=== PATIENT | male | born 1990 | race Caucasian/White ===

== ENCOUNTER 2017-04-13 17:30 | Emergency (ER) | payer BC ==
--- NOTE | ~2017-04-13 | CR20 ---
[facility]. [facility] A Service of [facility] & [facility] RADIOLOGY TEXT RESULTS PATIENT: JAROD MAY LOCATION: SED : 88 UNIT #: [id number] AGE: [address]: Gillian Amado SEX: M ORDER DR: [id number] [address] [address] [id number] E MR#: [id number] #: [id number] NAME: JAROD MAY. : 1990 SEX: M STUDY DATE/TIME: 04/13/2017 17:42 UNIT: SED ROOM: STUDY DESCRIPTION: CR Ankle Min 3 Views Lt Attending Physician: Gillian Amado P.A.-C. Ordering Physician: Gillian Amado P.A.-C. MEDICAL IMAGING REPORT This report is preliminary unless electronic signature is present. EXAM Left ankle 3 views HISTORY Ankle pain after injury yesterday. Jumped from tree. Lateral pain. FINDINGS AP, lateral, and oblique projections of the ankle show satisfactory integrity of the joint mortise with a smooth articular surface. There is no identifiable fracture, dislocation, or radiopaque foreign body. IMPRESSION Normal ankle. Dictated by... Victor Hugo Ashton M.D. THIS IS AN ELECTRONICALLY VERIFIED REPORT Victor Hugo Ashton M.D. at 04/14/2017 10:33 PM DFL/[place] TD: 04/14/2017 03:12 JOB #: [id number] MEDICAL IMAGING REPORT Page 1 of 1
== END 2017-04-13 19:30 | disposition home or self-care (01) ==
LOC: SED 17:30
DX: S93.402A Sprain of unspecified ligament of left ankle, initial encounter (principal); W19.XXXA Unspecified fall, initial encounter; Y92.830 Public park as the place of occurrence of the external cause
CPT/HCPCS: 29515; 73610; 99283